=== PATIENT | female | born 1950 | race Caucasian/White ===

== ENCOUNTER 2016-11-17 10:52 | Emergency (ER) | payer OTHER, MEDICAID ==
[~2016-11-17] VITALS: Ht 167.6 cm; Wt 93.0 kg
[2016-11-17 11:02] VITALS: BP 157/63
--- NOTE | 2016-11-17 11:10 | NUR ---
PATIENT TO BED 7 AT THIS TIME.
--- NOTE | 2016-11-17 11:11 | NUR ---
PT PRESENTS TO ER W/C/O FEVER AND COUGH X2 DAYS. TEMPERATURE UPON ARRIVAL TO ER 97.1. HX ASTHMA.PT STATES SHE A POST NASAL DRIP LAST MONTH.PT STATES SHE HAS SLIGHT SOB;O2 SAT OF 97%;W/ BACK PAIN 6/10;PRODUCTIVE COUGH AND RUNNY NOSE NOTED;DENIES CP/N/V;AA0X4;NO ACUTE DISTRESS NOTED AT THIS TIME;HOB ELEVATED;NEEDS ATTENDED;SAFETY MEASURES DONE;ALL MONITORS IN PLACED;POSITIONED FOR COMFORT.
--- NOTE | 2016-11-17 11:19 | NUR ---
XRAY AT BEDSIDE.
--- NOTE | 2016-11-17 11:32 | NUR ---
INFLUENZA A AND B SPECIMEN OBTAINED.
[2016-11-17] MEDS ORDERED: ALBUTEROL SULFATE/IPRATROPIU 3 ML SOL IH ONE (11:35)
[2016-11-17] MEDS ORDERED: ACETAMIN/CODEINE 120/12MG-5ML 5 ML UDC PO ONE (11:35)
--- NOTE | 2016-11-17 11:47 | NUR ---
PT WENT TO XRAY ACCOMPANIED BY TECH.
--- NOTE | 2016-11-17 12:28 | NUR ---
RT AT BEDSIDE.
--- NOTE | 2016-11-17 12:41 | NUR ---
Patient discharged with v/s stable. Written and verbal after care instructions given and explained.Patient alert, oriented and verbalized understanding of instructions. Ambulatory with steady gait. All questions addressed prior to discharge. ID band removed. Patient advised to follow up with PMD. Rx of TYLENOL W/ CODEINE,ALBUTEROL AND MEDROL DOSEPAK given. Patient educated on indication of medication including possible reaction and side effects. Opportunity to ask questions provided and answered.ADVISED PT TO INCREASE FLUID INTAKE TO DISSOLVE PLEGHM.
[2016-11-17 12:43] VITALS: BP 158/60
== END 2016-11-17 12:41 | disposition home or self-care (01) ==
LOC: MED 10:52
DX: J40 Bronchitis, not specified as acute or chronic (principal); B33.8 Other specified viral diseases; Z86.79 Personal history of other diseases of the circulatory system
CPT/HCPCS: 36415; 71010; 87804; 94640; 99285; J7620

== ENCOUNTER 2016-11-17 19:38 | Emergency (ER) | payer OTHER, MEDICAID ==
[~2016-11-17] VITALS: Ht 167.6 cm; Wt 120.2 kg
[2016-11-17 20:16] VITALS: BP 152/88
[2016-11-17] MEDS ORDERED: ALBUTEROL SULFATE/IPRATROPIU 3 ML SOL IH ONE (23:05)
[2016-11-17] MEDS ORDERED: ALBUTEROL 0.083% 2.5 MG/3 ML NEBU INH ONE (23:05)
[2016-11-17] MEDS ORDERED: predniSONE 20 MG TAB PO ONE (23:05)
--- NOTE | 2016-11-17 23:15 | NUR ---
BIB WHEELCHAIR TO ER BED 5
--- NOTE | 2016-11-17 23:20 | NUR ---
66 Y/O F W/C/O FEVER, COUGH, SOB AND BACK PAIN. PT STATES WAS WAS DIAGNOSED WITH BRONCHITIS HERE THIS MORNING BUT SPIKED A FEVER OF 104.2 AT HOME. TEMP 100.4 F. ER MADE AWARE. PT CURRENTLY RECEIVING A BREATHING TX.
[2016-11-18] MEDS ORDERED: ALBUTEROL SULFATE/IPRATROPIU 3 ML SOL IH ONE (00:15)
[2016-11-18] MEDS ORDERED: ONDANSETRON 4 MG ODT PO ONE (00:15)
[2016-11-18] MEDS ORDERED: ALBUTEROL 0.083% 2.5 MG/3 ML NEBU INH ONE (00:15)
--- NOTE | 2016-11-18 00:53 | NUR ---
VS ASSESSED TEMP OF 101.9 NOTED. MED PER PROTOCOAL GIVEN. ER NOTIFIED.
[2016-11-18] MEDS ORDERED: IBUPROFEN 800 MG TAB ONE (00:57)
[2016-11-18 01:28] VITALS: BP 149/78
--- NOTE | 2016-11-18 01:28 | NUR ---
Patient discharged with v/s stable, TEMP 100.8, ER MD MADE AWARE. Written and verbal after care instructions given and explained. Patient alert, oriented and verbalized understanding of instructions. Wheel Chair Assisted with by EMT. All questions addressed prior to discharge. ID band removed. Patient advised to follow up with PMD THIS WK OR RETURN TO ER IF CONDITION WORSENS. Rx of MOTRIN, ZOFRAN AND PREDNISONE given. Patient educated on indication of medication including possible reaction and side effects. Opportunity to ask questions provided and answered.
== END 2016-11-18 01:28 | disposition home or self-care (01) ==
LOC: MED 19:38
DX: R05 Cough (principal); R50.9 Fever, unspecified; R07.89 Other chest pain; J45.909 Unspecified asthma, uncomplicated; I10 Essential (primary) hypertension; Z86.79 Personal history of other diseases of the circulatory system
CPT/HCPCS: 94640; 99284; J7512; J7613; J7620; S0119